=== PATIENT | female | born 1945 | race Caucasian/White ===

== ENCOUNTER 2020-06-06 07:25 | Day surgery (SDC) | payer OTHER, MEDICARE ==
[2020-06-02 10:34] VITALS: BMI 18.5
[2020-06-06] MEDS ORDERED: LIDOCAINE HCL/PF 2% SDV 5ML VIAL ONE (07:55)
[2020-06-06] MEDS ORDERED: PROPOFOL 20 ML ONE ×3 (07:55)
[2020-06-06 08:58] VITALS: TEMP 98
[2020-06-06 09:13] VITALS: BP 110/60; PULSE 56
== END 2020-06-06 09:17 | disposition home or self-care (01) ==
LOC: FASU-ENDO 07:25
PROVIDERS: ATTEND Internal Medicine Gastroenterology
PROC: 0DBK8ZX Excision of Ascending Colon, Via Natural or Artificial Opening Endoscopic, Diagnostic (ICD-10-PCS; principal; 2020-06-06 08:29)
DX: Z12.11 Encounter for screening for malignant neoplasm of colon (principal); D12.2 Benign neoplasm of ascending colon; K57.30 Diverticulosis of large intestine without perforation or abscess without bleeding; Z86.010 Personal history of colon polyps; Z80.0 Family history of malignant neoplasm of digestive organs
CPT/HCPCS: 88305-TC